=== PATIENT | male | born 1945 | race Caucasian/White ===

== ENCOUNTER → 2023-12-07 12:35 | Outpatient (REF) | payer OTHER, SELFPAY ==
[2023-12-07 15:51] LABS: % Basophils 1.4 % (0-2); % Eosinophils 0.6 % (0-6); % Immature Granulocytes 0.3 % (0-0.5); % Lymphocytes 17.6 % (20.5-51.1); % Monocytes 13.8 % (1.7-9.3); % Neutrophils 66.3 % (42.2-75.2); Absolute Basophils 0.1 10^3/uL (0-0.2); Absolute Lymphocytes 0.6 10^3/uL (1.2-3.4); Absolute Monocytes 0.5 10^3/uL (0.1-0.6); Absolute Neutrophils 2.3 10^3/uL (1.4-6.5); Hematocrit 40.6 % (39.0-52.0); Hemoglobin 13.8 g/dL (13.0-18.0); Mean Corpuscular Hgb 29.6 pg (27.0-31.0); Mean Corpuscular Volume 87.1 fL (80.0-94.0); Mean Platelet Volume 10.3 fL (7.4-10.4); Nucleated Red Blood Cells % 0 % (-); Platelet Count 174 10^3/uL (130-400); Red Blood Cell Count 4.66 10^6/uL (4.70-6.10); Red Cell Dist. Width 15.1 % (11.5-14.5); White Blood Cell Count 3.5 10^3/uL (4.8-10.8)
[2023-12-07 16:03] LABS: ALT (SGPT) 19 U/L (0-50); AST (SGOT) 41 U/L (17-59); Albumin 4.1 g/dl (3.5-5.0); Alkaline Phosphatase 76 U/L (38-126); Blood Urea Nitrogen 21 mg/dl (9-20); Calcium 9.1 mg/dl (8.4-10.2); Carbon Dioxide 32 mmol/L (22-30); Chloride 96 mmol/L (98-107); Glucose 97 mg/dl (70-99); Potassium 3.6 mmol/L (3.5-5.1); Sodium 138 mmol/L (135-145); Total Bilirubin 1.1 mg/dl (0.2-1.3); Total Protein 6.5 g/dl (6.3-8.2); eGFR > 60.00
== END ==
LOC: HWLAB 12:35
PROVIDERS: ATTENDING PHYSICIAN Internal Medicine Rheumatology; FAMILY PHYSICIAN Family Medicine
DX: M1A.09X1 Idiopathic chronic gout, multiple sites, with tophus (tophi) (principal); M81.0 Age-related osteoporosis without current pathological fracture; Z79.899 Other long term (current) drug therapy
CPT/HCPCS: 36415; 80053; 84550; 85025

== ENCOUNTER → 2024-03-08 06:10 | Outpatient (REF) | payer OTHER, SELFPAY ==
[2024-03-08 09:53] LABS: % Basophils 0.9 % (0-2); % Eosinophils 2.7 % (0-6); % Immature Granulocytes 0.3 % (0-0.5); % Neutrophils 54.1 % (42.2-75.2); Absolute Eosinophils 0.1 10^3/uL (0-0.7); Absolute Lymphocytes 0.9 10^3/uL (1.2-3.4); Absolute Monocytes 0.5 10^3/uL (0.1-0.6); Absolute Neutrophils 1.8 10^3/uL (1.4-6.5); Hematocrit 37.9 % (39.0-52.0); Hemoglobin 12.7 g/dL (13.0-18.0); Mean Corp Hgb Conc. 33.5 g/dL (33.0-37.0); Mean Corpuscular Hgb 30.1 pg (27.0-31.0); Mean Corpuscular Volume 89.8 fL (80.0-94.0); Mean Platelet Volume 10.8 fL (7.4-10.4); Nucleated Red Blood Cells % 0 % (-); Platelet Count 158 10^3/uL (130-400); Red Blood Cell Count 4.22 10^6/uL (4.70-6.10); Red Cell Dist. Width 14.9 % (11.5-14.5); White Blood Cell Count 3.3 10^3/uL (4.8-10.8)
[2024-03-08 10:05] LABS: ALT (SGPT) 13 U/L (0-50); AST (SGOT) 30 U/L (17-59); Albumin 4.1 g/dl (3.5-5.0); Alkaline Phosphatase 83 U/L (38-126); Blood Urea Nitrogen 18 mg/dl (9-20); Calcium 9.3 mg/dl (8.4-10.2); Carbon Dioxide 36 mmol/L (22-30); Chloride 96 mmol/L (98-107); Glucose 118 mg/dl (70-99); Potassium 3.8 mmol/L (3.5-5.1); Sodium 137 mmol/L (135-145); Total Bilirubin 0.9 mg/dl (0.2-1.3); Total Protein 6.1 g/dl (6.3-8.2); Uric Acid 4.8 mg/dl (3.5-8.5); eGFR > 60.00
[2024-03-08 10:51] LABS: Erythrocyte Sed Rate 40 mm/hour (0-20)
== END ==
LOC: HWLAB 06:10
PROVIDERS: ATTENDING PHYSICIAN Internal Medicine Rheumatology; FAMILY PHYSICIAN Family Medicine
DX: Z79.899 Other long term (current) drug therapy (principal); M1A.09X1 Idiopathic chronic gout, multiple sites, with tophus (tophi)
CPT/HCPCS: 36415; 80053; 84550; 85025; 85652; 86140

== ENCOUNTER → 2024-06-10 12:10 | Outpatient (REF) | payer OTHER, SELFPAY ==
[2024-06-10 16:02] LABS: Blood Urea Nitrogen 22 mg/dl (9-20); Calcium 9.5 mg/dl (8.4-10.2); Chloride 91 mmol/L (98-107); Glucose 135 mg/dl (70-99); Sodium 138 mmol/L (135-145); eGFR > 60.00
[2024-06-10 16:12] LABS: Carbon Dioxide 34 mmol/L (22-30)
== END ==
LOC: HWLAB 12:10
PROVIDERS: ATTENDING PHYSICIAN Thoracic Surgery (Cardiothoracic Vascular Surgery); FAMILY PHYSICIAN Family Medicine
DX: I71.21 Aneurysm of the ascending aorta, without rupture (principal)
CPT/HCPCS: 36415; 80048

== ENCOUNTER → 2024-12-21 10:07 | Outpatient (REF) | payer OTHER, SELFPAY ==
[2024-12-21 17:29] LABS: % Basophils 0.7 % (0-2); % Eosinophils 2.1 % (0-6); % Immature Granulocytes 0.2 % (0-0.5); % Lymphocytes 11.9 % (20.5-51.1); % Monocytes 10.3 % (1.7-9.3); % Neutrophils 74.8 % (42.2-75.2); Absolute Eosinophils 0.1 10^3/uL (0-0.7); Absolute Lymphocytes 0.5 10^3/uL (1.2-3.4); Absolute Monocytes 0.4 10^3/uL (0.1-0.6); Absolute Neutrophils 3.1 10^3/uL (1.4-6.5); Hematocrit 43.7 % (39.0-52.0); Hemoglobin 13.8 g/dL (13.0-18.0); Mean Corp Hgb Conc. 31.6 g/dL (33.0-37.0); Mean Corpuscular Hgb 29.2 pg (27.0-31.0); Mean Corpuscular Volume 92.4 fL (80.0-94.0); Mean Platelet Volume 11.3 fL (7.4-10.4); Nucleated Red Blood Cells % 0 % (-); Platelet Count 136 10^3/uL (130-400); Red Blood Cell Count 4.73 10^6/uL (4.70-6.10); Red Cell Dist. Width 14.9 % (11.5-14.5); White Blood Cell Count 4.2 10^3/uL (4.8-10.8)
[2024-12-21 17:39] LABS: Erythrocyte Sed Rate 117 mm/hour (0-20)
[2024-12-21 17:41] LABS: ALT (SGPT) 17 U/L (0-50); AST (SGOT) 30 U/L (17-59); Alkaline Phosphatase 84 U/L (38-126); Blood Urea Nitrogen 24 mg/dl (9-20); Carbon Dioxide 36 mmol/L (22-30); Chloride 104 mmol/L (98-107); Glucose 82 mg/dl (70-99); Potassium 4.1 mmol/L (3.5-5.1); Sodium 143 mmol/L (135-145); Total Bilirubin 0.9 mg/dl (0.2-1.3); Total Protein 6.5 g/dl (6.3-8.2); Uric Acid 3.4 mg/dl (3.5-8.5); eGFR > 60.00
== END ==
LOC: HWLAB 10:07
PROVIDERS: ATTENDING PHYSICIAN Internal Medicine Rheumatology; FAMILY PHYSICIAN Family Medicine
DX: L40.50 Arthropathic psoriasis, unspecified (principal); M1A.09X1 Idiopathic chronic gout, multiple sites, with tophus (tophi); M81.0 Age-related osteoporosis without current pathological fracture
CPT/HCPCS: 36415; 80053; 84550; 85025; 85652; 86140

== ENCOUNTER → 2025-03-03 06:13 | Outpatient (REF) | payer OTHER, SELFPAY ==
[2025-03-03 09:49] LABS: Hematocrit 45.2 % (39.0-52.0); Hemoglobin 14.2 g/dL (13.0-18.0); Mean Corp Hgb Conc. 31.4 g/dL (33.0-37.0); Mean Corpuscular Volume 93.0 fL (80.0-94.0); Nucleated Red Blood Cells % 0 % (-); Platelet Count 188 10^3/uL (130-400); Red Cell Dist. Width 15.6 % (11.5-14.5)
[2025-03-03 13:22] LABS: Blood Urea Nitrogen 21 mg/dl (9-20); Calcium 8.9 mg/dl (8.4-10.2); Carbon Dioxide 35 mmol/L (22-30); Chloride 97 mmol/L (98-107); Glucose 106 mg/dl (70-99); Potassium 4.0 mmol/L (3.5-5.1); Sodium 137 mmol/L (135-145); eGFR > 60.00
== END ==
LOC: HWLAB 06:13
PROVIDERS: ATTENDING PHYSICIAN Otolaryngology; FAMILY PHYSICIAN Family Medicine
DX: J38.1 Polyp of vocal cord and larynx (principal); I10 Essential (primary) hypertension
CPT/HCPCS: 36415; 80048; 85025

== ENCOUNTER 2025-06-08 07:17 | Inpatient (IN) | payer OTHER, SELFPAY ==
[2025-06-08] VITALS (9 sets, daily range): BP systolic 76–131; BP diastolic 72–84; BMI 25.3; BMI 24.7
[2025-06-08 02:50] LABS: Hematocrit 45.7 % (39.0-52.0); Hemoglobin 14.1 g/dL (13.0-18.0); Mean Corp Hgb Conc. 30.9 g/dL (33.0-37.0); Mean Corpuscular Volume 94.8 fL (80.0-94.0); Nucleated Red Blood Cells % 0 % (-); Platelet Count 121 10^3/uL (130-400); Red Cell Dist. Width 15.0 % (11.5-14.5)
[2025-06-08 03:09] LABS: ALT (SGPT) 19 U/L (0-50); AST (SGOT) 36 U/L (17-59); Albumin 4.0 g/dl (3.5-5.0); Alkaline Phosphatase 97 U/L (38-126); Blood Urea Nitrogen 28 mg/dl (9-20); Calcium 8.7 mg/dl (8.4-10.2); Chloride 97 mmol/L (98-107); Estimated Creatinine Clearance 40 ml/min; Glucose 94 mg/dl (70-99); Potassium 4.4 mmol/L (3.5-5.1); Sodium 139 mmol/L (135-145); Total Protein 6.7 g/dl (6.3-8.2); eGFR > 60.00
[2025-06-08 03:18] LABS: Carbon Dioxide 37 mmol/L (22-30)
[2025-06-08 04:43] LABS: Troponin I 0.078 ng/ml
[2025-06-08 04:49] LABS: B.E. 8.0 mmol/L; HCO3 35.5 mmol/L (21-28); O2 Saturation % 98.5 % (94-98); PCO2 60 mmHg (35-48); PO2 99 mmHg (83-108)
[2025-06-08 04:50] LABS: O2 Therapy 2 L NC
--- NOTE | 2025-06-08 05:18 | ED.GENMED ---
History of Present Illness
General
Chief Complaint: Cardiac Symptoms
Source: patient and spouse
Exam Limitations: clinical condition
Time Seen by Provider: 06/08/25 03:31
Nursing documentation reviewed up to this point in time: agreed with
History of Present Illness
History of Present Illness:
The patient is an 80-year-old male with a known history of heart failure, presenting with worsening dyspnea primarily at night and increased lower extremity edema. According to the patient�s spouse, he has been experiencing exacerbated shortness of
breath over the past few nights, coupled with increased fluid retention. The patient has noted his legs are more swollen than usual. He reported taking more doses of his diuretic medication, torsemide, to manage the swelling. His baseline weight is
around 129 pounds, but he has recently gained approximately 5 pounds, peaking at 137 pounds before managing to reduce it slightly with increased diuretic use.
The patient had a fall while seated in a recliner, resulting in contact with the floor, causing discomfort in his head and shoulder but no loss of consciousness. He used an ice pack on his neck for mild pain. The fall occurred due to being lethargic
and drowsy, conditions noted by his spouse. The patient denies chest pain and does not regularly use supplemental oxygen. He has a known aortic aneurysm, deemed inoperable by his heart surgeon due to surgical risk factors.
The patient reports better condition during daytime, regularly attending the gym and driving himself; however, he falls asleep easily and appears lethargic. He states improvement after about 5 minutes while lying down. He attended the gym the
previous day.
He follows with folder machine at [facility]. is thinking of transitioning to [facility] specialist.
His daily medications include allopurinol, enalapril�dose was lowered by PCP last week. Levothyroxine and torsemide. is unsure as to the doses of these medicines.
Past History
Past History
ED Past Medical History: Arrthythmia (Atrial fibrillation), CAD, CHF, HTN, Hypothyroidism and Other (Gout; thoracic aortic aneurysm)
ED Past Surgical History: Cardiac (CABG, abdominal aortic aneurysm repair, PTCA with stents) and Orthopedic (Left knee surgery 2022)
Social History
Tobacco: Non-smoker
Alcohol: None
Drug: None
Living: with family
Employment: Retired
Family History
Family History: Other (Noncontributory)
Phy Exam
Physical Exam
Physical Exam:
GENERAL: A 80-year-old gentleman appears his stated age, moderately lethargic, flexed forward posture, leaning to the right. Mild hypoxia on room air with pulse ox in the 80s, requiring supplemental nasal cannula oxygen.
EYE: anicteric
NECK: Supple, no midline bony tenderness, no meningismus, no significant adenopathy. Mild JVD.
ENT: oral mucosa is moist. No rhinorrhea.
CARDIAC: Regular rate and rhythm. no murmur.
LUNGS: Mild resting tachypnea. Decreased breath sounds at bases with fine rales bilaterally.
ABDOMEN: Soft, nondistended, without focal tenderness, no r/g, no cvat. normoactive BS.
NEUROLOGICAL: Awake, moderately drowsy, oriented x 3, no focal neuro deficits.
SKIN: Warm and dry, normal color, skin intact. No rash.
MUSCULOSKELETAL: +2-3 pitting edema bilateral lower extremities, peripheral pulses are full and equal b/l. No palpable tenderness.
PSYCH: Moderately drowsy.
Course
Orders/Labs/Results
Orders:
Orders
06/08/25 01:48
EKG [Electrocardiogram (*1)] Urgent
Reason for Study: Heart Failure, Left
EKG- Treatment ONCE
06/08/25 02:43
Complete Blood Count/With Diff Urgent
Comprehensive Metabolic Panel Urgent
NT-proBNP Urgent
06/08/25 03:42
CT Cervical Spine W/o Iv Contr Urgent
Comment:
Reason For Exam: fall out of chair, neck pain
06/08/25 03:43
CT Head W/o Iv Contrast Urgent
Comment:
Reason For Exam: fall out of chair, lethargy
06/08/25 03:47
CT Chest PE Study Urgent
Comment:
Reason For Exam: SOB, CP
06/08/25 03:48
Cervical Collar- Treatment ONCE
Collar Type: Hard Cervical Collar
06/08/25 04:00
Troponin I Urgent
06/08/25 04:26
ABG [Arterial Blood Gas] Urgent
%Oxygen/Room Air: 2 L NC
06/08/25 05:24
Furosemide [Lasix] 60 mg IV NOW STA
Abnormal Lab Results
06/08/25 06/08/25 06/08/25
02:43 04:00 04:26
WBC 4.3 L 10^3/uL
(4.8-10.8)
MCV 94.8 H fL
(80.0-94.0)
MCHC 30.9 L g/dL
(33.0-37.0)
RDW 15.0 H %
(11.5-14.5)
Plt Count 121 L 10^3/uL
(130-400)
MPV 10.7 H fL
(7.4-10.4)
Absolute Lymphs (auto) 0.5 L 10^3/uL
(1.2-3.4)
Lymphocytes % 11.5 L %
(20.5-51.1)
Monocytes % 13.4 H %
(1.7-9.3)
pCO2 60 H mmHg
(35-48)
HCO3 35.5 H mmol/L
(21-28)
ABG O2 Sat (Measured) 98.5 H %
(94-98)
Chloride 97 L mmol/L
(98-107)
Carbon Dioxide 37 H mmol/L
(22-30)
BUN 28 H mg/dl
(9-20)
Troponin I 0.078 H* ng/ml
06/08/25 02:43
06/08/25 02:43
Vital Signs
Initial and Last Documented VS:
Initial Vital Signs
Temp Pulse BP Pulse Ox
98.1 F 97 130/81 93
06/08/25 01:55 06/08/25 01:55 06/08/25 01:55 06/08/25 01:55
Last Documented Vital Signs
Temp Pulse Resp BP Pulse Ox
98.1 F 88 18 130/81 96
06/08/25 01:55 06/08/25 04:30 06/08/25 04:15 06/08/25 01:55 06/08/25 05:19
MDM/Problems Addressed
Differential Diagnosis Includes:
The Differential Diagnosis includes, in no particular order and is not limited to:
- Acute Decompensated Heart Failure
- Pulmonary Edema
- Aortic Dissection
- Atrial Fibrillation or other arrhythmias
- Volume Overload
- Electrolyte Imbalance
- Orthostatic Hypotension
- Syncope
- Sleep Apnea
- Anxiety-related Hyperventilation
MDM/Problems Addressed:
Acute:
- Shortness of breath exacerbation
- Increased lower extremity edema
- Recent fall with minor head and neck injury
Chronic:
- Heart failure
- Large ascending thoracic aortic aneurysm
Patient is acutely hypoxic, moderately drowsy/obtunded. Concern for occult head injury as he fell out of his chair. Other consideration is hypercarbia.
Will check CT of the head, CT cervical spine as well as CT of the chest/PE study.
Will check labs as well as ABG.
Will continue supplemental oxygen.
EKG shows probable atrial fibrillation, right bundle branch block, Q waves inferiorly as well as anteroseptal. No old EKGs to compare.
Chronic conditions affecting care: HTN, CAD and Arrhythmia
*Radiology
Radiology exam reviewed: radiology read reviewed (CT of the head and cervical spine show no acute traumatic findings. CT of the chest shows no PE, moderate cardiomegaly, small left and moderate right pleural effusion. Chronic compression
deformities of thoracic spine.)
*Pulse Oximetry
SaO2: 96
Nasal Cannula flow liters per minute: 2
Oxygen Mode of Delivery: Room air
Patient hypoxic: yes
*EKG
Interpreted by ED Provider?: Yes
Interpretation: abnormal
Comparison EKG: no comparison EKG present
Rate: normal
Rhythm: a-fib
[place]: left axis deviation
QRS Pattern: right bundle branch block
Ischemia: non-specific ST changes
*Experimental Machinist Interpretation
Rate: normal
Rhythm: a-fib
*Critical Care Note
Total Time (30-74mins, 75-104mins- exclusive of procedures): Not Applicable
Update Note
Update Note:
BNP is elevated near 10,000
Troponin mildly elevated 0.078.
ABG shows respiratory acidosis with metabolic alkalosis, appears chronic in nature with normal pH.
CT of the chest shows bilateral pleural effusions, cardiomegaly.
Will give an IV dose of Lasix and admit to hospitalist service.
ED Attending Note
-
Portions of this chart may have been created with voice recognition software.� Occasional wrong word or��sound alike� substitutions may have occurred due to the inherent limitations of voice recognition software.
Discharge Plan
Departure
Patient Disposition: Admit
Date of Disposition: 06/08/25
Time of Disposition: 05:38
Admit to: Telemetry
Admit to doctor: John
Presentation/result/management discussed w/ accepting MD/DO: Hospitalist
Condition: Serious
Discharge Problem:
Acute on chronic combined systolic (congestive) and diastolic (congestive) heart failure, Acute hypoxemic respiratory failure, Elevated troponin
Referrals:
Luber,Sean, DO [Family Provider, Family Practice]
Interventions
Interventions:
*Risk Screen - Suicide Last Done: 06/08/25 02:10
*General Assessment Last Done: 06/08/25 02:10
*Neglect/Abuse Screening Last Done: 06/08/25 02:10
*ED- Fall Risk Assessment Last Done: 06/08/25 02:10
*ED COVID-19 Vaccine History Last Done: 06/08/25 02:10
*ED Influenza Vaccine History Last Done: 06/08/25 02:10
ED- Pulmonary Assessment Last Done: 06/08/25 02:10
ED- Cardiac Assessment Last Done: 06/08/25 02:10
Discharge Date and Time
Print Language: GERMAN
[2025-06-08] MEDS: LASIX 60 MG IV (05:57)
--- NOTE | 2025-06-08 06:28 | HPS.HSE ---
Family Physician
-
Family Physician: Sean Martino
Chief Complaint
-
Shortness of breath
History of Present Illness
This is a 80-year-old male with a past medical history of CAD status post CABG x 5, ischemic cardiomyopathy, CHF on diuretics, atrial fibrillation not on anticoagulation and no rate control, thoracic aortic aneurysm, gout, hypothyroid KANA on CPAP
but noncompliant presents to the emergency department with progressive shortness of breath.
Per family members patient has been having more shortness of breath over the last few days although is chronically short of breath not on home O2. He usually can walk up a flight of stairs and gets winded but is now less able to do so for the last
few days. He still goes to the gym and tries to walk water regularly. And he still did that yesterday. He has been sleeping in a recliner because he cannot lay down due to shortness of breath. Has had increased lower extremity edema. They
reported 5 pound weight gain over the last 2 days. Patient self medicated with additional doses of his torsemide (family does not know the dose) without much improvement. He has not had any chest pain. He denies any cough fevers or chills. His
blood pressure was low about 1 week ago and is JANNETH inhibitor was discontinued. His blood pressure has been normalized since then.
Today he was tripoding while sitting down on his recliner leaning forward when he tipped over and fell. helped him to get back to a sitting position but patient was more lethargic afterwards and decided to bring him to the emergency
department. There was no loss of consciousness according to spouse. There was no palpitation.
In the emergency department he was afebrile, blood pressure was 130/76 with a pulse rate of 84 and he was satting 92% on 2 L. ECG shows atrial fibrillation with right bundle at a rate of 84. His troponin was 0.07. BNP was 9900. CBC was
unremarked. Electrolytes. Creatinine was notable for a bicarb of 37 but otherwise unremarkable. glucose was 94.
CT of the head shows no acute interval changes. CT C-spine was unremarkable. CT of the chest showed no pulmonary embolism, there was cardiomegaly with reflux of contrast into the IVC which could reflect heart failure, there is small left and
moderate right pleural effusion with compressive atelectasis
Medical History
Past Medical History
Past Medical History: Reports Arrhythmia (Atrial fibrillation), CAD (Is status post CABG), CHF, HTN and Other (Gout, thoracic aortic aneurysm, KANA and noncompliant with CPAP)
Past Surgical History: Reports Cardiac (CABG, abdominal aortic aneurysm repair, PTCA with stents) and Orthopedic (Left knee surgery)
Social History
Tobacco: Former Smoker
Alcohol: None
Drug: None
Personal:
Living: With Family
Employment: Retired
Family History
Family History: Not pertinent
Allergies / Home Medications
Allergies reflects when Allergies were last updated in [employer].
Home Medications with original date entered in [employer]
Allergy/Medication List:
Allergies
Allergy/AdvReac Type Severity Reaction Status Date / Time
No Known Allergies Allergy Unverified 03/23/13 19:54
Home Medications
allopurinol 300 mg tablet 450 mg PO DAILY 06/08/25
alprazolam 0.25 mg tablet 0.25 mg PO DAILY PRN anxiety 06/08/25
levothyroxine 50 mcg tablet 50 mcg PO DAILY 06/08/25
torsemide 20 mg tablet 20 mg PO BID 06/08/25
Review of Systems
-
History Source: Family
Constitutional: Reports No Symptoms and Sleep Disturbance
EENT: Reports No Symptoms
Respiratory: Reports Trouble Breathing
Cardiac: Denies Chest Pain, Diaphoresis, Palpitations or Syncope
Abdomen/GI: Reports No Symptoms
: Reports No Symptoms
Musculoskeletal: Reports No Symptoms
Skin: Reports No Symptoms
Neurological: Reports No Symptoms
Endocrine: Reports No Symptoms
Hematologic/Lymphatic: Reports No Symptoms
Psych: Reports No Symptoms
Physical Exam
Vital Signs
Vital Signs
Temp Pulse Resp BP Pulse Ox
98.1 F 84 15 131/76 99
06/08/25 01:55 06/08/25 06:00 06/08/25 06:00 06/08/25 05:57 06/08/25 06:00
Physical Exam
General: Appears Chronically Ill
HEENT: NormoCephalic, Anicteric, Moist mucous membranes, PERRLA, Hearing Impaired and Oxygen
Respiratory: Crackles
Cardiac: S1/S2, Irregular Rhythm and Peripheral Edema; No Murmur or Rub
GI: Soft
Rectal: Deferred by Provider
Genito-urinary: Deferred by me
Musculoskeletal: No Clubbing, No Cyanosis, Edema, Left Lower Extremity and Edema, Right Lower Extremity
Skin: Warm
Neuro: AO x 3 and Nonfocal/grossly intact
Laboratory Results
-
06/08/25 02:43
06/08/25 02:43
Laboratory Results
pH 7.38 (7.35-7.45) 06/08/25 04:26
pCO2 60 mmHg (35-48) H 06/08/25 04:26
pO2 99 mmHg (83-108) 06/08/25 04:26
HCO3 35.5 mmol/L (21-28) H 06/08/25 04:26
Total Bilirubin 1.0 mg/dl (0.2-1.3) 06/08/25 02:43
AST 36 U/L (17-59) 06/08/25 02:43
ALT 19 U/L (0-50) 06/08/25 02:43
Alkaline Phosphatase 97 U/L (38-126) 06/08/25 02:43
Troponin I 0.078 ng/ml H* 06/08/25 04:00
Data Reviewed
-
CT Scan: Report Reviewed by me
Medical Tests (Nuc Med, Echo, EKG etc): Image Personally Visualized and interpreted
Lab Data: Labs Reviewed by me
Impression/Plan
-
IMPRESSION:
80-year-old male with past medical history significant for CHF, CAD status post CABG in the remote past, atrial fibrillation not currently anticoagulated, hypothyroid, KANA not on CPAP, history of repeated AAA, history of thoracic aortic aneurysm
presenting to the emergency department with progressive shortness of breath. Clearly has congestive heart failure based on 5 pound weight gain in 2 days, peripheral edema elevated JVD, bilateral pleural effusions, elevated BNP and CT scan showing
signs consistent with heart failure. No fevers or chills. No cough. No other signs of infection.
PLAN:
CHF exacerbation -patient reports compliance with torsemide 20 mg p.o. twice daily and took extra doses recently. Still had weight gain
-Admit to telemetry
-IV Lasix 80 mg twice daily for now
-Daily weights and ins and outs
-Echo
-Trend troponins
-Patient intolerant of GDMT due to recent hypotensive episode, will monitor blood pressure for now and timing appropriate additional meds
�Cardiology consultation
Atrial fibrillation -rate controlled off beta-blockade
-Patient has declined anticoagulation and will not be on any
-Monitor rates on telemetry for now, hold off on rate control unless patient becomes tachycardic
-Check TSH
Aortic AAA -high risk, not a candidate for surgery, will monitor for now, BP control
KANA -noncompliant with CPAP
-Recommend CPAP at bedtime as tolerated
-Will need to be on oxygen for now
-Current ABG with compensated chronic respiratory acidosis pCO2 60
DVT prophylaxis�Lovenox subcu for now
CODE STATUS� DNR, DO NOT INTUBATE
--- NOTE | 2025-06-08 08:09 | W.PN.HOSP.TC ---
Today's Communication/Plan
-
see PN
Assessment / Plan
Assessment / Plan
80yo M with PMHx of Afib not on AC by choice, anxiety, gout, CAD s/p CABG, ischemic CM, CHF came with 2 weeks of worsening breathing and lethargy, found LE edema and hypoxia with pulmonary edema on chest CT, managed for CHF exacerbation. patient
fell on the floor and was unable to raise as per bedside. Was very easyly falling asleep for te past 2 weeks
A/P:
#b/l pleural effusions R>L
#Atelectasis
#Acute CHF exacerbation
#Afib, permanent
#Troponin elevation
#Ascending aortic aneurism
Lasix, Echo, daily weights, Cr and electrolytes
Cardio consult
Not on ASA, statin, BB - will need to be started if agereed by patient
Defer AC decision to cardiology. [id number] at least 5 - 7.2% per year stroke risk
CHeck TSH, Lipids, HgbA1c
DIagnostic R pleural effusion thoracentesis - check PT, PTT, LDH ahead of procedure
follow troponin, EKG with RBBB, Afib, but no clinically significant ST elevations. Biphasic TW in lateral leads seen
Telemetry
#Acute hypoxic rrespiratory failure with acute metabolic encephalopathy
Check UA
ABG
Wean off O2 as possible
As CT chest cannot exclude infection - follow fever and WBC curve. However no left shift. Will hold off Abx until further findings
#Fall
no acute findings on CT head and cervical CT
#Thrombocytopenia
#Chronic leukopenia
unclear reason
follow labs
Might need hem consult if persistent
#Gout
#Hypothyroidism
cont Synthroid
cont Allopurinol
#Hx of esophageal stricture with dysphagia
s/p VTE in November 2024: hin liquids and regular texture solids
VT ppx lovenox
DNR/DNI
I have spent at least 59min reviewing chart, test results, communication with consultants, bedside and providing direct patient care
Anticipated Discharge: > 48 hours
Subjective/Interval History
-
Date of Service: June 08, 2025
Objective Data
-
Labs:
Laboratory Results
06/08/25 06/08/25 06/08/25
02:43 04:26 07:53
WBC 4.3 L
Hgb 14.1
Hct 45.7
Plt Count 121 L
PT
INR
APTT
HCO3 35.5 H Pending
Sodium 139
Potassium 4.4
Chloride 97 L
Carbon Dioxide 37 H
BUN 28 H
Creatinine 1.1
Glucose 94
Calcium 8.7
Total Bilirubin 1.0
AST 36
ALT 19
Alkaline Phosphatase 97
06/08/25
08:08
WBC
Hgb
Hct
Plt Count
PT Pending
INR Pending
APTT Pending
HCO3
Sodium
Potassium
Chloride
Carbon Dioxide
BUN
Creatinine
Glucose
Calcium
Total Bilirubin
AST
ALT
Alkaline Phosphatase
Vital Signs:
Vital Signs
Temp Pulse Resp BP Pulse Ox
98.1 F 97 27 131/76 90
06/08/25 01:55 06/08/25 06:45 06/08/25 06:45 06/08/25 05:57 06/08/25 06:45
Review of Systems
-
History Source: Patient
All other systems: Reviewed and negative
Physical Exam
-
General: No Apparent Distress
HEENT: Normocephalic and Atraumatic; Negative Moist Mucous Membranes
Respiratory: Negative Wheezes or Crackles
Cardiac: Irregular Rhythm
GI: Soft, Nontender and Nondistended
Musculoskeletal: No Clubbing, No Cyanosis and No Edema
Skin: Dry
Neuro: Sedated
Psych: Calm
--- NOTE | 2025-06-08 08:22 | CM ---
Chart reviewed and spoke with patient and Harper at ED bedside
Pt lives in [facility] with of 52 years. 3 [place]
Independent with ADLs and uses cane for outside as needed
hx of sleep apnea and has CPAP but has not used for a long time
CM discussed with and patient about reaching out to PCP and/or sleep medicine for follow up
Patient has 3 kids from previous marriange
[facility] in [place] was here in ED to check on him
DME Cane, CPAP
PCP DR. Sean Martino
[facility] Super[facility] ; pt and are in process of getting a new patient ambassador here at . his old patient ambassador retired and he did NOT like the new one at the same practice
hx of CABG 40 years ago
Rx plan yes
[facility] in [place]
no hx VN nor SNF
DCP home with hhc vs STR?
can provide transportation at the time of DC if needed
CM will continue to follow up for any dcp needs
[2025-06-08 08:33] LABS: B.E. 9.8 mmol/L; HCO3 37.5 mmol/L (21-28); O2 Saturation % 93.0 % (94-98); PCO2 62 mmHg (35-48); PO2 64 mmHg (83-108)
[2025-06-08 08:50] LABS: LDH 276 U/L (120-246)
[2025-06-08 10:56] LABS: LDH 282 U/L (120-246)
[2025-06-08 11:01] LABS: INR 1.18; PT 15.6 Sec (11.4-14.6)
[2025-06-08 11:02] LABS: APTT 33.7 Sec (23.4-35.0)
[2025-06-08 11:04] LABS: Body Fluid Second Tech US
[2025-06-08 11:53] LABS: Troponin I 0.075 ng/ml
--- NOTE | 2025-06-08 12:43 | CON.CAR ---
Addendum entered and electronically signed by Alex Damian DO 06/08/25 15:22:
I saw and examined the patient.
The Mold Carpenter's note was reviewed and I agree with the note.
Comment:
Plan:
Admitted with HF, and fall.
Records from Dr. Lester of [facility]: Patient has history of CABG x 5 in 1993 with most recent cardiac catheterization 2020 showing patent DUNN to LAD and UMER to diagonal, however occluded vein grafts as well as his [place] circulation. He has
permanent atrial fibrillation and refused anticoagulation as well as antiplatelet therapy or lipid-lowering therapy. His last echocardiogram from 2022 showed EF preserved with mild concentric LVH, mild AR/MR/TR, aortic root 4.1 cm and ascending
aorta 4.7 cm. He has a history of an abdominal aortic aneurysm stent in 2005
Continue IV diuresis. He was on torsemide as outpt.
Check echo
Monitor Is and Os and daily wts and cr.
s/p R thoracentesis 06/08
He has permanent AFib and refuses anticoagulation
GDMT as bp will allow
Head CT negative, further work up of mental status as per primary service.
Addendum entered and electronically signed by Crystal Harris PA-C 06/08/25 14:21:
records received and reviewed from Dr. Lester of [facility]. Patient has history of CABG x 5 in 1993 with most recent cardiac catheterization 2020 showing patent DUNN to LAD and UMER to diagonal, however occluded vein grafts as well as his [place]
circulation. He has permanent atrial fibrillation and refused anticoagulation as well as antiplatelet therapy or lipid-lowering therapy. His last echocardiogram from 2022 showed EF preserved with mild concentric LVH, mild AR/MR/TR, aortic root 4.1
cm and ascending aorta 4.7 cm. He has a history of an abdominal aortic aneurysm stent in 2005
Original Note:
Consultation
Consultation Request
Date/Time Consultation Performed: 06/08/25
Requesting Provider: Dr. Coleman
Performing Provider: Crystal Harris PA-C for Dr. Gejer
Reason for Consultation: CHF
Medical History
-
Chief Complaint: fall, lethargy, SOB
History of Present Illness:
Patient is an 80 yo M with PMH of CAD s/p CABG x5, ICM, atrial fibrillation not on OAC as patient states he is on natural blood thinner, CHF, thoracic aortic aneurysm, gout, KANA noncompliant with CPAP who presented to [facility] due to worsening SOB.
Family had noted over the last week or so that patient's breathing had been worsening as well as had noted associated weight gain and orthopnea. Then yesterday patient was sitting on recliner reportedly tripoding and leaned forward and fell. He
reportedly was lethargic and was brought in. He is lethargic but is able to tell me he follows with [facility] cardiology. He denies CP. proBNP 9910. Cardiology consulted for evaluation.
PMH:
CAD s/p CABG x5
ICM
CHF, presumed with reduced EF
Atrial fibrillation, unknown chronicity
Not on OAC, patient reports due to prior bleeding issues and as is on natural blood thinner
thoracic aortic aneurysm
gout
KANA
Hypothyroidism
Former smoker
Past Medical History
Past Medical History: Other (in HPI)
Social History
Tobacco: Former Smoker
Alcohol: None
Personal:
Living: With Family
Employment: Retired
Family History
Family History: Reviewed & Not Pertinent
Allergies / Home Medications
Allergy/AdvReac Type Severity Reaction Status Date / Time
No Known Allergies Allergy Unverified 03/23/13 19:54
�Medication �Instructions �Recorded �Confirmed �Type
allopurinol 300 mg tablet 450 mg PO DAILY Gout 06/08/25 06/08/25 History
alprazolam 0.25 mg tablet 0.25 mg PO DAILYPRN PRN anxiety 06/08/25 06/08/25 History
ascorbic acid (vitamin C) 500 mg 500 mg PO DAILY Supplement 06/08/25 06/08/25 History
tablet (Vitamin C)
cholecalciferol (vitamin D3) 25 25 mcg PO DAILY Supplement 06/08/25 06/08/25 History
mcg (1,000 unit) capsule (Vitamin
D3)
docusate sodium 100 mg capsule 100 mg PO BIDPRN PRN constipation 06/08/25 06/08/25 History
(Colace)
enalapril maleate 10 mg tablet 10 mg PO DAILY Blood Pressure 06/08/25 06/08/25 History
levothyroxine 50 mcg tablet 50 mcg PO DAILY Thyroid 06/08/25 06/08/25 History
torsemide 20 mg tablet 20 mg PO BID 06/08/25 06/08/25 History
vitamin B complex 1 tab PO DAILY Supplement 06/08/25 06/08/25 History
Review of Systems
-
History Source: Patient
All other systems: Negative unless noted
Physical Exam
Vital Signs
Temp Pulse Resp BP Pulse Ox
97.8 F 92 17 128/80 100
06/08/25 11:48 06/08/25 11:48 06/08/25 11:48 06/08/25 11:48 06/08/25 11:48
Lab Results
06/08/25 02:43
06/08/25 02:43
Troponin I 0.075 ng/ml H* 06/08/25 10:52
Hae-W-Liwrlmzdhcb Pept 9910 pg/ml 06/08/25 02:43
Physical Exam
General: Comfortable and Other (lethargic but awakens to verbal stimuli. on supp O2)
HEENT: Normocephalic, Anicteric and Moist Mucous Membranes
Respiratory: Crackles and Non Labored Respirations
Cardiac: S1/S2 and Irregular Rhythm
GI: Soft, Non Tender, Non Distended and Normal Bowel Sounds
Musculoskeletal: No Clubbing, No Cyanosis and Edema (1+ of B/L LE)
Skin: Warm and Dry
Neuro: Awake and Oriented (to self, place)
Impression / Plan
-
Primary Photogrammetric Compilation Specialist: AMS
Assessment:
Presentation with fall, lethargy, SOB
Acute hypoxic respiratory failure
B/L pleural effusions, R>L s/p R thora 06/08/25, transudative
Acute on chronic CHF, presumed with reduced EF
CAD s/p CABG x5
ICM
Atrial fibrillation, unknown chronicity, suspected permanent
Not on OAC, patient reports due to prior bleeding issues and as is on natural blood thinner
thoracic aortic aneurysm
HTN
HLD
gout
KANA
Hypothyroidism
Former smoker
DNR code status
ECHO 06/08/25: prelim EF 30-35%
Plan:
-Patient presented after fall and lethargy in setting of progressive VALENTINE/SOB over the last week
-noted to have evidence of acute CHF with proBNP [address] with B/L pleural effusions R>L
-s/p R thoracentesis 06/08, which appears transudative by my calculation of light's criteria
-continue IV lasix 80mg BID. Cr stable at 1.1. was on po torsemide 20mg BID prior to admission
-wean supp O2 as able, reports did not require at home
-also with elevated CO2, follow with diuresis. may have degree of chronic lung disease as well
-awaiting records for review from primary utility mechanic
-trops elevated but flat in 0.07 range. no CP.
-EKG rate controlled afib with right bundle and PVCs at times in pattern of bigeminy. follow on tele. K stable. add on mag
-he states is not on anticoagulation due to prior bleeding issues. states he is on a 'natural blood thinner' as OP, does not appear to be on med list. [id number] score of 5 for age, HTN, CHF, vascular disease
-echo pending, prelim EF 30-35%. has history of ICM
-not on BB as OP. is on enalapril. would attempt to place on GDMT as BP/Cr allows
-follow mental status. remains lethargic but answers questions appropriately. head CT without acute abnormality noted
Data Reviewed
-
EKG: Tracing Personally Visualized and interpreted
CT Scan: Report Reviewed by me
Medical Tests (Nuc Med, Echo etc): Report Reviewed by me
Labs: Labs Reviewed by me
Old Records: Requested and Reviewed
[2025-06-08] MEDS: ZYLOPRIM 450 MG PO (12:55)
[2025-06-08] MEDS: SYNTHROID 50 MCG PO (12:56)
[2025-06-08 14:22] LABS: Magnesium 2.4 mg/dl (1.6-2.3)
[2025-06-08 15:04] LABS: Urine Character Clear (Clear)
[2025-06-08 15:28] LABS: Urine Red Blood Cell 0-2 /HPF (0-2); Urine Squamous Cell 0-2 /LPF (Few); Urine White Cell 0-2 /HPF (0-5)
[2025-06-08] MEDS: LASIX 80 MG IV (17:23)
[2025-06-08] MEDS: LOVENOX 40 MG SC (17:24)
[2025-06-08 19:28] LABS: COVID-19 Antigen Negative (Negative)
[2025-06-09] MEDS: SYNTHROID 50 MCG PO (05:44)
[2025-06-09 05:53] LABS: Hematocrit 45.5 % (39.0-52.0); Hemoglobin 13.9 g/dL (13.0-18.0); Mean Corp Hgb Conc. 30.5 g/dL (33.0-37.0); Mean Corpuscular Volume 96.0 fL (80.0-94.0); Nucleated Red Blood Cells % 0 % (-); Platelet Count 114 10^3/uL (130-400); Red Cell Dist. Width 15.0 % (11.5-14.5)
[2025-06-09 06:13] VITALS: BMI 24.5
[2025-06-09 06:22] LABS: ALT (SGPT) 17 U/L (0-50); AST (SGOT) 29 U/L (17-59); Albumin 3.7 g/dl (3.5-5.0); Alkaline Phosphatase 88 U/L (38-126); Blood Urea Nitrogen 21 mg/dl (9-20); Calcium 8.1 mg/dl (8.4-10.2); Chloride 96 mmol/L (98-107); Estimated Creatinine Clearance 42 ml/min; Glucose 110 mg/dl (70-99); Magnesium 2.3 mg/dl (1.6-2.3); Potassium 3.5 mmol/L (3.5-5.1); Sodium 138 mmol/L (135-145); Total Protein 6.4 g/dl (6.3-8.2); eGFR > 60.00
[2025-06-09 07:02] LABS: Carbon Dioxide 42 mmol/L (22-30)
[2025-06-09 07:33] VITALS: BP 121/69
[2025-06-09 07:38] LABS: Reticulocyte Count 1.6 % (0.4-2.8)
[2025-06-09 07:52] LABS: LDH 254 U/L (120-246)
[2025-06-09] MEDS: LASIX 80 MG IV ×2 (09:25→18:27)
[2025-06-09] MEDS: ZYLOPRIM 450 MG PO (09:25)
[2025-06-09 09:29] LABS: Glycohemoglobin (HgbA1c) 6.0 % (4.0-5.9)
--- NOTE | 2025-06-09 10:19 | W.PN.CARDCBS ---
Addendum entered and electronically signed by Loree Smith DO 06/09/25 17:23:
I saw and examined the patient.
The Worm Sorter's note was reviewed and I agree with the note.
Comment: Patient was seen and examined. Family at bedside. Offers no new complaints. Family is considering transferring care to [facility].
Plan:
Patient presented 06/08/2025 after fall and lethargy in setting of progressive VALENTINE/SOB over the last week
He is followed by Dr. Robbin Lester at [facility] for his cardiology care. Records received and reviewed which are reflected in this progress note.
Pleural effusions
-chest CT with B/L pleural effusions R>L
-s/p R thoracentesis 06/08, transudative
Acute CHF with reduced ejection fraction with proBNP 9910
-Echo shows EF of 30 to 35% with global hypokinesis. Patient has history of ischemic cardiomyopathy but EF was preserved in 2022
- Ongoing diuresis with IV lasix 80mg BID. Cr stable at 1.0. {was on po torsemide 20mg BID prior to admission}
-Replete potassium, K+ 3.5
- Initially required oxygen on admission, now has been weaned off
-also with elevated CO2, follow with diuresis. may have degree of chronic lung disease as well
-not on BB as OP. is on enalapril.
-would attempt to place on GDMT as BP/Cr allows. Start enalapril 2.5 mg in a.m. and Toprol 12.5 mg at bedtime
Abnormal troponin
-Peaked at 0.078.denies chest pain. EKG without ischemia. Suspect nonischemic myocardial injury secondary to heart failure
- Patient does have history of CABG x 5 in 1993. Per review of outpatient records last cardiac catheterization in 2020 showed occluded grafts as well as lower [place] circulation
-Will continue to attempt guideline directed therapy. Patient has been reluctant to take medication in past.
- Patient reports intolerance to statins as well as rash on prior statins. He is not interested in initiating therapy
History of permanent atrial fibrillation
-EKG rate controlled afib with right bundle and PVCs at times in pattern of bigeminy. follow on tele.
-Replete potassium
- Patient has declined anticoagulation due to prior bleeding issues. states he is on a 'Nattokinase and Serrapeptase which are natural blood thinners' as OP. He is not interested in starting anticoagulation
- [id number] score of 5 for age, HTN, CHF, vascular disease
Original Note:
Today's Communication / Plan
-
Replete potassium
Ongoing IV diuresis
Start enalapril 2.5 mg daily, Toprol 12.5 mg at bedtime
Impression / Plan
-
Primary Canal Equipment Mechanic: Dr. Lester, [facility]
Assessment:
Presentation 06/08/2025 with fall, lethargy, SOB
Acute hypoxic respiratory failure
B/L pleural effusions, R>L
s/p R thora 06/08/25, transudative
Acute on chronic CHF with reduced EF, 30-35%
CAD s/p CABG x5 1993
ICM
Permanent Atrial fibrillation, declines anticoagulation
Not on OAC, patient reports due to prior bleeding issues and as is on natural blood thinner
thoracic aortic aneurysm
Abdominal aortic aneurysm stent 2005
HTN
HLD
gout
KANA
Hypothyroidism
Former smoker
DNR code status
ECHO 06/08/25: EF 30 to 35%, global hypokinesis with flattened septum in systole due to RV volume overload. Moderate MR. Mild AI with mildly dilated ascending ao. Severe TR with PAP 38 mmHg
Echocardiogram 2022([facility]): EF preserved with mild concentric LVH, mild AR/MR/TR, aortic root 4.1 cm and ascending aorta 4.7 cm
Cardiac catheterization 2020 showing patent DUNN to LAD and UMER to diagonal, however occluded vein grafts as well as his lower [place] circulation
Plan:
Patient presented 06/08/2025 after fall and lethargy in setting of progressive VALENTINE/SOB over the last week
He is followed by Dr. Robbin Lester at [facility] for his cardiology care. Records received and reviewed which are reflected in this progress note.
Pleural effusions
-chest CT with B/L pleural effusions R>L
-s/p R thoracentesis 06/08, transudative
Acute CHF with reduced ejection fraction with proBNP 9910
-Echo shows EF of 30 to 35% with global hypokinesis. Patient has history of ischemic cardiomyopathy but EF was preserved in 2022
- Ongoing diuresis with IV lasix 80mg BID. Cr stable at 1.0. {was on po torsemide 20mg BID prior to admission}
-Replete potassium, K+ 3.5
- Initially required oxygen on admission, now has been weaned off
-also with elevated CO2, follow with diuresis. may have degree of chronic lung disease as well
-not on BB as OP. is on enalapril.
-would attempt to place on GDMT as BP/Cr allows. Start enalapril 2.5 mg in a.m. and Toprol 12.5 mg at bedtime
Abnormal troponin
-Peaked at 0.078.denies chest pain. EKG without ischemia. Suspect nonischemic myocardial injury secondary to heart failure
- Patient does have history of CABG x 5 in 1993. Per review of outpatient records last cardiac catheterization in 2020 showed occluded grafts as well as lower [place] circulation
-Will continue to attempt guideline directed therapy. Patient has been reluctant to take medication in past.
- Patient reports intolerance to statins as well as rash on prior statins. He is not interested in initiating therapy
History of permanent atrial fibrillation
-EKG rate controlled afib with right bundle and PVCs at times in pattern of bigeminy. follow on tele.
-Replete potassium
- Patient has declined anticoagulation due to prior bleeding issues. states he is on a 'Nattokinase and Serrapeptase which are natural blood thinners' as OP. He is not interested in starting anticoagulation
- [id number] score of 5 for age, HTN, CHF, vascular disease
Patient considering transitioning cardiology care to [facility] as his prior informatics consultant Dr. Hong recently retired and he is only seen Dr. Lester wants
Plan discussed with hospitalist
Progress Note - Canal Equipment Mechanic
Subjective
Date of Service: June 09, 2025
Patient seen and examined. Patient's is at bedside. Feels less short of breath but still feels tired. Now off oxygen
Objective
Labs:
06/09/25 05:17
06/09/25 05:17
Labs
Hgb 13.9 g/dL (13.0-18.0) 06/09/25 05:17
Hct 45.5 % (39.0-52.0) 06/09/25 05:17
Plt Count 114 10^3/uL (130-400) L 06/09/25 05:17
PT 15.6 Sec (11.4-14.6) H 06/08/25 10:17
INR 1.18 06/08/25 10:17
APTT 33.7 Sec (23.4-35.0) 06/08/25 10:17
Sodium 138 mmol/L (135-145) 06/09/25 05:17
Potassium 3.5 mmol/L (3.5-5.1) 06/09/25 05:17
BUN 21 mg/dl (9-20) H 06/09/25 05:17
Creatinine 1.0 mg/dL (0.7-1.3) 06/09/25 05:17
Glucose 110 mg/dl (70-99) H 06/09/25 05:17
Troponins
06/08/25 06/08/25 06/08/25
04:00 10:52 16:31
Troponin I 0.078 H* 0.075 H* Cancelled
Vital Signs and I&O:
Vital Signs
Temp Pulse Resp BP Pulse Ox
98.3 F 98 17 121/69 92
06/09/25 07:33 06/09/25 07:33 06/09/25 07:33 06/09/25 07:33 06/09/25 07:33
Vital Signs
Temp Pulse Resp BP Pulse Ox
98.3 F 98 17 121/69 92
06/09/25 07:33 06/09/25 07:33 06/09/25 07:33 06/09/25 07:33 06/09/25 07:33
Intake & Output
06/07/25 06/08/25 06/09/25 06/10/25
06:59 06:59 06:59 06:59
Output Total 950 / 950
Balance -950 / -950
Physical Exam
Physical Exam
GEN: No distress, awake, Ox3 sitting in chair on room air
HEENT: supple, anicteric, mmm
LUNGS: Crackles at right base, mildly decreased at left base, no wheezes
CV: Reg, S1/S2, 1/6 systolic murmur
ABD: soft, BS+, NT/ND
EXT: +1 lower extremity edema, skin changes consistent with chronic venous stasis
NEURO: Gross non-focal
SKIN: No rash
--- NOTE | 2025-06-09 10:52 | W.PN.HOSP.TC ---
Addendum entered and electronically signed by Jermain Carvajal MD 06/09/25 11:16:
repeated TSH WNL
#PreDM - low carb diet
Original Note:
Today's Communication/Plan
-
further cardio mgmt
Assessment / Plan
Assessment / Plan
80yo M with PMHx of Afib not on AC by choice, anxiety, gout, CAD s/p CABG, ischemic CM, CHF came with 2 weeks of worsening breathing and lethargy, found LE edema and hypoxia with pulmonary edema on chest CT, managed for CHF exacerbation. patient
fell on the floor and was unable to raise as per bedside. Was very easily falling asleep for te past 2 , found hypercarbic respiratory failure 2/2 HFrEF exacerbation weeks
A/P:
#b/l pleural effusions R>L
#Atelectasis
#Acute HFrEF exacerbation
#Afib, permanent
#Troponin elevation
#Ascending aortic aneurism
Echo: EF 30-35%, global hypokinesis, RV volume overload, moderate MR, severe TR
Lasix, daily weights, Cr and electrolytes, consider aldactone
Cardio consult
Not on ASA, statin, BB - will need to be started if agreed by patient
Defer AC decision to cardiology. [id number] at least 5 - 7.2% per year stroke risk. Patient declined AC before, he is using herbal supplements for self-medication. Had long discussion on AC and risk/benefit of that. Patient wants to discuss with
card.
DIagnostic R pleural effusion thoracentesis - transudate with neg CX to date. Path pending
follow troponin, EKG with RBBB, Afib, but no clinically significant ST elevations. Biphasic TW in lateral leads seen
Telemetry
#Acute hypoxic hypercapnic respiratory failure with acute metabolic encephalopathy 2/2 CHF
UA neg
Weaned off O2 as of 06/09/[address] chest cannot exclude infection - follow fever and WBC curve. However no left shift. Will hold off Abx until further findings
#Fall
no acute findings on CT head and cervical CT
#Thrombocytopenia
#Chronic leukopenia
unclear reason
follow labs
Outpatient collar pointer
#Gout
#Hypothyroidism
cont Synthroid
cont Allopurinol
#Hx of esophageal stricture with dysphagia
s/p VTE in November 2024: hin liquids and regular texture solids
VT ppx lovenox
DNR/DNI
I have spent at least 51min reviewing chart, test results, communication with consultants, bedside and providing direct patient care
Anticipated Discharge: 24 - 48 hours
Subjective/Interval History
-
Date of Service: June 09, 2025
Objective Data
-
Labs:
Laboratory Results
06/09/25
05:17
WBC 4.3 L
Hgb 13.9
Hct 45.5
Plt Count 114 L
Sodium 138
Potassium 3.5
Chloride 96 L
Carbon Dioxide 42 H
BUN 21 H
Creatinine 1.0
Glucose 110 H
Calcium 8.1 L
Total Bilirubin 1.4 H
AST 29
ALT 17
Alkaline Phosphatase 88
Vital Signs:
Vital Signs
Temp Pulse Resp BP Pulse Ox
98.3 F 98 17 121/69 92
06/09/25 07:33 06/09/25 07:33 06/09/25 07:33 06/09/25 07:33 06/09/25 07:33
I&O
06/08/25 06/09/25 06/10/25
06:59 06:59 06:59
Output Total 950 / 950
Balance -950 / -950
Review of Systems
-
History Source: Patient
All other systems: Reviewed and negative
Physical Exam
-
General: No Apparent Distress
HEENT: Normocephalic
GI: Soft, Nontender and Nondistended
Musculoskeletal: No Clubbing, No Cyanosis, Edema, Right Lower Extrem (trace) and Edema, Left Lower Extrem (trace)
Neuro: Awake, Alert, Oriented and AO x 3
Psych: Calm
[2025-06-09 11:39] VITALS: BP 129/71
[2025-06-09 12:15] LABS: HDL Cholesterol 51 mg/dl; LDL Cholesterol, Calculated 101 mg/dl; Very Low Density Lipoprotein 10 mg/dl (0-30)
[2025-06-09] MEDS: VASOTEC 2.5 MG PO (13:16)
[2025-06-09] MEDS: KCL 40 MEQ PO (13:18)
[2025-06-09 15:42] VITALS: BP 98/70
[2025-06-09] MEDS: LOVENOX 40 MG SC (18:27)
--- NOTE | 2025-06-09 18:40 | PTCARENOTE ---
Patient refused Lipitor during shift stating ' I took statins before and had a bad reaction to them'. Pt didn't elaborate on symptoms, but said ' I was on three before and it just wasn't good'.
[2025-06-09 19:00] VITALS: BP 124/75
[2025-06-09] MEDS: TOPROL XL 12.5 MG PO (20:26)
[2025-06-09 23:00] VITALS: BP 99/65
[2025-06-10 03:00] VITALS: BP 105/71
[2025-06-10] MEDS: SYNTHROID 50 MCG PO (04:55)
[2025-06-10 06:00] VITALS: BMI 24.3
[2025-06-10 07:00] VITALS: BP 111/73
[2025-06-10 07:36] LABS: Blood Urea Nitrogen 19 mg/dl (9-20); Calcium 8.4 mg/dl (8.4-10.2); Chloride 93 mmol/L (98-107); Estimated Creatinine Clearance 47 ml/min; Glucose 108 mg/dl (70-99); Magnesium 2.5 mg/dl (1.6-2.3); Potassium 4.4 mmol/L (3.5-5.1); Sodium 138 mmol/L (135-145); eGFR > 60.00
[2025-06-10] MEDS: TOPROL XL 12.5 MG PO (08:18)
[2025-06-10] MEDS: VASOTEC 2.5 MG PO (08:18)
[2025-06-10] MEDS: ZYLOPRIM 450 MG PO (08:18)
[2025-06-10] MEDS: LASIX 80 MG IV ×2 (08:19→17:05)
[2025-06-10 09:15] LABS: Carbon Dioxide 39 mmol/L (22-30)
--- NOTE | 2025-06-10 10:46 | W.PN.HOSP.TC ---
Today's Communication/Plan
-
PT/OT
Lasix as per card. If switched to PO - d/c home
Assessment / Plan
Assessment / Plan
80yo M with PMHx of Afib not on AC by choice, anxiety, gout, CAD s/p CABG, ischemic CM, CHF came with 2 weeks of worsening breathing and lethargy, found LE edema and hypoxia with pulmonary edema on chest CT, managed for CHF exacerbation. patient
fell on the floor and was unable to raise as per bedside. Was very easily falling asleep for te past 2 , found hypercarbic respiratory failure 2/2 HFrEF exacerbation weeks
A/P:
#b/l pleural effusions R>L
#Atelectasis
#Acute HFrEF exacerbation
#Afib, permanent
#Troponin elevation
#Ascending aortic aneurism
Echo: EF 30-35%, global hypokinesis, RV volume overload, moderate MR, severe TR
Lasix, daily weights, Cr and electrolytes, consider aldactone
Cardio consult
Not on ASA, statin, BB - will need to be started if agreed by patient
Defer AC decision to cardiology. [id number] at least 5 - 7.2% per year stroke risk. Patient declined AC before, he is using herbal supplements for self-medication. Had long discussion on AC and risk/benefit of that. Patient wants to discuss with
card.
DIagnostic R pleural effusion thoracentesis - transudate with neg CX to date. Path pending
follow troponin, EKG with RBBB, Afib, but no clinically significant ST elevations. Biphasic TW in lateral leads seen
Telemetry
#Acute hypoxic hypercapnic respiratory failure with acute metabolic encephalopathy 2/2 CHF
UA neg
Weaned off O2 as of 06/09/[address] chest cannot exclude infection - follow fever and WBC curve. However no left shift. Will hold off Abx until further findings
#Fall
no acute findings on CT head and cervical CT
#Thrombocytopenia
#Chronic leukopenia
unclear reason
follow labs
Outpatient business process associate
#Gout
#Hypothyroidism
cont Synthroid
cont Allopurinol
#Hx of esophageal stricture with dysphagia
s/p VTE in November 2024: hin liquids and regular texture solids
VT ppx lovenox
DNR/DNI
I have spent at least 51min reviewing chart, test results, communication with consultants, bedside and providing direct patient care
Anticipated Discharge: Within 24 hours
Subjective/Interval History
-
Date of Service: June 10, 2025
Objective Data
-
Labs:
Laboratory Results
06/10/25
06:04
Sodium 138
Potassium 4.4 D
Chloride 93 L
Carbon Dioxide 39 H
BUN 19
Creatinine 0.9
Glucose 108 H
Calcium 8.4
Vital Signs:
Vital Signs
Temp Pulse Resp BP Pulse Ox
97.4 F 91 18 111/73 96
06/10/25 07:00 06/10/25 07:00 06/10/25 07:00 06/10/25 07:00 06/10/25 07:00
I&O
06/09/25 06/10/25 06/11/25
06:59 06:59 06:59
Output Total 950 / 950
Balance -950 / -950
Review of Systems
-
History Source: Patient
All other systems: Reviewed and negative
Physical Exam
-
General: No Apparent Distress
HEENT: Normocephalic
Respiratory: Crackles (R)
GI: Soft, Nontender and Nondistended
Musculoskeletal: No Clubbing, No Cyanosis, Edema, Right Lower Extrem and Edema, Left Lower Extrem
Psych: Calm
[2025-06-10 11:00] VITALS: BP 120/95
--- NOTE | 2025-06-10 11:02 | W.DCSUMMARY ---
Discharge Summary
Discharge Data
Date of Admission: 06/08/25
Date of Discharge: 06/11/25
-
Pending Results: No
Hospital Course
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
managed for CHF exacerbation. patient fell on the floor and was unable to raise as per bedside. Was very easily falling asleep for te past 2 , found hypercarbic respiratory failure 2/2 HFrEF exacerbation due to medication non-compliance -
decreased dose of Torsemide at home. Improved on diuresis. Declined anticoagulation as per cardiology notes. Medically stable for d/c home
I have spent at least 51min reviewing chart, test results, communication with consultants, bedside and providing direct patient care
Patient was managed for:
#b/l pleural effusions R>L
#Atelectasis
#Acute HFrEF exacerbation
#Afib, permanent
#Troponin elevation
#Ascending aortic aneurism
#Acute hypoxic hypercapnic respiratory failure with acute metabolic encephalopathy 2/2 CHF
#Fall
#Thrombocytopenia
#Chronic leukopenia
#Gout
#Hypothyroidism
#Hx of laryngeal paresis
#Hx of esophageal stricture with dysphagia
Discharge Plan
-
Patient Disposition: Home (Routine Discharge)
Discharge Diagnosis/Procedures: CHF
Diet: Low Sodium and Diabetic, Carb Controlled
Additional Diets: Fluid restriction <60 Oz per day
Activity: As tolerated
Blood Work: BMP in 1 week with family doctor
Specialty Instructions: Weigh Daily- Call MD for wt gain/loss 3 lbs overnight/5 lbs in 1 week
Activity Restrictions/Additional Instructions:
Weight yourself every morning, if >3lbs overnight - take extra Torsemide dose 1 time, if next morning still up - talk to the doctor LOYDA
Take Torsemide as prescrbed, dont decrease the dose
Instructions: *PCP/Other Dramatic Critic Heart Failure Instructions
Referrals:
Sean Martino DO [Family Provider, Family Practice]
Marcellus Stephens MD [Active, Cardiology] - in less than 1 week
Guy Vera MD [Active, Hematology / Oncology] - in three to four weeks
Referral Note: leukopenia, thrombocytopenia
Prescriptions:
New
atorvastatin 10 mg Tablet
10 mg PO QPM Qty: 30 0RF
enalapril maleate 2.5 mg Tablet
2.5 mg PO DAILY Qty: 30 0RF
metoprolol succinate 25 mg Tablet Extended Release 24 Hr
12.5 mg PO DAILY Qty: 15 0RF
Continued
alprazolam 0.25 mg tablet
0.25 mg PO DAILYPRN PRN (Reason: anxiety)
levothyroxine 50 mcg tablet
50 mcg PO DAILY
allopurinol 300 mg tablet
450 mg PO DAILY
docusate sodium [Colace] 100 mg Capsule
100 mg PO BIDPRN PRN (Reason: constipation)
vitamin B complex Tablet
1 tab PO DAILY
cholecalciferol (vitamin D3) [Vitamin D3] 25 mcg (1,000 unit) Capsule
25 mcg PO DAILY
torsemide 20 mg tablet
20 mg PO BID Qty: 60 0RF
Discontinued
enalapril maleate 10 mg Tablet
10 mg PO DAILY
ascorbic acid (vitamin C) [Vitamin C] 500 mg Tablet
500 mg PO DAILY
Discharge Orders:
Discharge Patient (As Directed); Ordered 06/11/25
Ordered By: Jermain Carvajal
Discharge Date and Time
Print Language: CHADIAN
--- NOTE | 2025-06-10 12:14 | PTCARENOTE ---
Patient refusing bed and chair alarm stating ' I did not fall, I don't know why that is in my chart'. Patient worked with physical therapy this morning who determined that patient is independent with walking. Dr Carvajal made aware of patient's
refusal for bed and chair alarm as well as outcomes of PT session. Dr Carvajal communicated that patient is OK to be off of bed and chair alarm.
[2025-06-10 15:00] VITALS: BP 117/73
[2025-06-10] MEDS: LOVENOX 40 MG SC (17:04)
[2025-06-10 19:20] VITALS: BP 105/66
[2025-06-10 23:10] VITALS: BP 112/74
[2025-06-11 03:00] VITALS: BP 103/67
[2025-06-11] MEDS: SYNTHROID 50 MCG PO (05:45)
[2025-06-11 06:00] VITALS: BMI 24.3
[2025-06-11 07:00] VITALS: BP 112/71
[2025-06-11] MEDS: DEMADEX 20 MG PO (07:07)
[2025-06-11] MEDS: TOPROL XL 12.5 MG PO (07:07)
[2025-06-11] MEDS: ZYLOPRIM 450 MG PO (07:07)
[2025-06-11] MEDS: VASOTEC 2.5 MG PO (07:07)
[2025-06-11 07:43] LABS: Blood Urea Nitrogen 21 mg/dl (9-20); Calcium 8.5 mg/dl (8.4-10.2); Carbon Dioxide 37 mmol/L (22-30); Chloride 94 mmol/L (98-107); Estimated Creatinine Clearance 47 ml/min; Glucose 105 mg/dl (70-99); Potassium 3.6 mmol/L (3.5-5.1); Sodium 135 mmol/L (135-145); eGFR > 60.00
--- NOTE | 2025-06-11 10:23 | W.PN.HOSP.TC ---
Today's Communication/Plan
-
dc
Assessment / Plan
Assessment / Plan
80yo M with PMHx of Afib not on AC by choice, anxiety, gout, CAD s/p CABG, ischemic CM, CHF came with 2 weeks of worsening breathing and lethargy, found LE edema and hypoxia with pulmonary edema on chest CT, managed for CHF exacerbation. patient
fell on the floor and was unable to raise as per bedside. Was very easily falling asleep for te past 2 , found hypercarbic respiratory failure 2/2 HFrEF exacerbation. As per patient - he decreased amount of Torsemide recently - counseled on
compliance.
A/P:
#b/l pleural effusions R>L
#Atelectasis
#Acute HFrEF exacerbation 2/2 medication non-compliance
#Afib, permanent
#Troponin elevation
#Ascending aortic aneurism
Echo: EF 30-35%, global hypokinesis, RV volume overload, moderate MR, severe TR
Lasix, daily weights, Cr and electrolytes, consider aldactone
Cardio consult
Not on ASA, statin, BB - will need to be started if agreed by patient
Defer AC decision to cardiology. [id number] at least 5 - 7.2% per year stroke risk. Patient declined AC before, he is using herbal supplements for self-medication. Had long discussion on AC and risk/benefit of that. Patient wants to discuss with
card.
DIagnostic R pleural effusion thoracentesis - transudate with neg CX to date. Path pending
follow troponin, EKG with RBBB, Afib, but no clinically significant ST elevations. Biphasic TW in lateral leads seen
Telemetry
#Acute hypoxic hypercapnic respiratory failure with acute metabolic encephalopathy 2/2 CHF
UA neg
Weaned off O2 as of 06/09/[address] chest cannot exclude infection - follow fever and WBC curve. However no left shift. Will hold off Abx until further findings
#Fall
no acute findings on CT head and cervical CT
#Thrombocytopenia
#Chronic leukopenia
unclear reason
follow labs
Outpatient handyperson
#Gout
#Hypothyroidism
cont Synthroid
cont Allopurinol
#Hx of esophageal stricture with dysphagia
s/p VTE in November 2024: hin liquids and regular texture solids
VT ppx lovenox
DNR/DNI
I have spent at least 51min reviewing chart, test results, communication with consultants, daughter bedside and providing direct patient care
Anticipated Discharge: Today
Subjective/Interval History
-
Date of Service: June 11, 2025
Objective Data
-
Labs:
Laboratory Results
06/11/25
07:08
Sodium 135
Potassium 3.6
Chloride 94 L
Carbon Dioxide 37 H
BUN 21 H
Creatinine 0.9
Glucose 105 H
Calcium 8.5
Vital Signs:
Vital Signs
Temp Pulse Resp BP Pulse Ox
98.0 F 82 19 112/71 98
06/11/25 07:00 06/11/25 07:00 06/11/25 07:00 06/11/25 07:00 06/11/25 07:00
I&O
06/10/25 06/11/25 06/12/25
06:59 06:59 06:59
Intake Total 1500 / 1500
Balance 1500 / 1500
Review of Systems
-
History Source: Patient
All other systems: Reviewed and negative
Physical Exam
-
General: No Apparent Distress
Respiratory: Crackles
GI: Soft, Nontender and Nondistended
Musculoskeletal: No Clubbing, No Cyanosis, Edema, Right Lower Extrem and Edema, Left Lower Extrem
Psych: Calm
--- NOTE | 2025-06-11 10:56 | CM ---
Addendum entered by Negra Villa RN 06/11/25 11:23:
Pulse ox checked pt pox room air is 96%.
Original Note:
MD entered order for discharge.
Spoke with dgt [facility] in room .Dgt will drive him home.
PT indicated no needs .
Offered VN she declined need .
Pt was wearing oxygen . Requested MD order home oxygen testing .
IMM reviewed and signed on chart.
PLAN Home with no anticipated needs
[2025-06-11 11:00] VITALS: BP 104/68
== END 2025-06-11 12:26 | disposition home or self-care (01) | DRG 291 ==
LOC: 3 WEST ACU 07:17
PROVIDERS: Radiology Vascular & Interventional Radiology; ADMITTING PHYSICIAN Internal Medicine; ATTENDING PHYSICIAN Internal Medicine; EMERGENCY PHYSICIAN Emergency Medicine; FAMILY PHYSICIAN Family Medicine; OTHER PHYSICIAN Nuclear Medicine Nuclear Cardiology
PROC: 0W993ZZ Drainage of Right Pleural Cavity, Percutaneous Approach (ICD-10-PCS; 2025-06-08)
DX: I11.0 Hypertensive heart disease with heart failure (principal); G93.41 Metabolic encephalopathy; J96.21 Acute and chronic respiratory failure with hypoxia; J96.22 Acute and chronic respiratory failure with hypercapnia; I50.43 Acute on chronic combined systolic (congestive) and diastolic (congestive) heart failure; I48.21 Permanent atrial fibrillation; J98.11 Atelectasis; J90 Pleural effusion, not elsewhere classified; Z87.891 Personal history of nicotine dependence; G47.33 Obstructive sleep apnea (adult) (pediatric); Z66 Do not resuscitate; D69.6 Thrombocytopenia, unspecified; M10.9 Gout, unspecified; E03.9 Hypothyroidism, unspecified; Z91.148 Patient's other noncompliance with medication regimen for other reason; I5A Non-ischemic myocardial injury (non-traumatic); Z11.52 Encounter for screening for COVID-19
CPT/HCPCS: 32555; 70450; 71045; 71275; 72125; 80048; 80053; 80061; 81003; 81015; 82150; 82248; 82805; 83036; 83615; 83735; 83880; 83986; 84100; 84157; 84439; 84443; 84484; 85025; 85045; 85610; 85730; 87015; 87070; 87205; 87502; 87811; 88112; 88305; 89051; 93005; 93306; 96374; 97161; 99285; Q9967

== ENCOUNTER 2025-07-24 22:16 | Emergency (ER) | payer OTHER, SELFPAY ==
[2025-07-24 22:19] VITALS: BP 121/70
[2025-07-25 02:07] VITALS: BMI 25.0
[2025-07-25 02:09] VITALS: BP 127/108
[2025-07-25 02:36] LABS: Hematocrit 46.0 % (39.0-52.0); Hemoglobin 15.3 g/dL (13.0-18.0); Mean Corp Hgb Conc. 33.3 g/dL (33.0-37.0); Mean Corpuscular Volume 90.6 fL (80.0-94.0); Nucleated Red Blood Cells % 0 % (-); Platelet Count 144 10^3/uL (130-400); Red Cell Dist. Width 14.8 % (11.5-14.5)
--- NOTE | 2025-07-25 03:00 | ED.GENMED ---
History of Present Illness
General
Chief Complaint: Abdominal Symptoms
Source: patient and spouse
Time Seen by Provider: 07/25/25 02:31
History of Present Illness
History of Present Illness:
Note:
CHIEF COMPLAINT(S)
Constipation
HISTORY OF PRESENT ILLNESS
The patient is an 80-year-old male presenting with symptoms of constipation enduring for the duration of the day. He reports a history of intermittent constipation correlated with the usage of diuretics, which presumably contributes to his
dehydration. Earlier attempts to relieve the condition included administering a suppository, which eventually led to a bowel movement after considerable discomfort. The patient expresses a desire to go home, indicating an improvement in symptoms
during the visit. Discussion included the potential use of polyethylene glycol (Miralax) for ongoing management. The treatment suggestion was to take Miralax once to twice daily over the next five days to ensure regular bowel movements, adjusting
the dose based on response to prevent diarrhea.
Additional historian
Patient spouse states that he did have a bowel movement with resolution of symptoms in the waiting room. She states that she gave him an enema earlier.
CHRONIC MEDICAL CONDITIONS SIGNIFICANTLY AFFECTING CARE
Chronic Obstructive Pulmonary Disease (COPD)
PHYSICAL EXAM
General: Alert, no acute distress.
Skin: Warm, dry.
Head: Normocephalic, atraumatic.
Neck: Supple, trachea midline.
Eye Ears, nose, mouth and throat: Oral mucosa moist.
Cardiovascular: Normal peripheral perfusion, No edema.
Respiratory: Respirations are non-labored.
Gastrointestinal: Abdomen soft, non-tender, no distension.
Back: Normal range of motion, Normal alignment.
Musculoskeletal: Normal range of motion, normal strength.
Neurological: Alert and oriented to person, place, time, and situation, No focal neurological deficit observed.
Psychiatric: Cooperative, appropriate mood & affect.
PLAN
- Initiate Miralax (polyethylene glycol) once to twice daily for the next five days to manage constipation, with dose adjustments based on bowel movement regularity.
- Monitor for improvement and adjust frequency as needed to prevent diarrhea or further constipation.
- Discharge home with instructions for self-care and follow-up if symptoms worsen or new symptoms develop.
DIFFERENTIAL DIAGNOSIS
The Differential Diagnosis includes, in no particular order and is not limited to:
1. Constipation secondary to diuretic use
2. Functional bowel obstruction
3. Fecal impaction
4. Colonic inertia
5. Dehydration
6. Hypothyroidism
7. Gastrointestinal motility disorder
8. Medication-induced constipation
9. Irritable bowel syndrome (IBS)
10. Neurological disorders affecting bowel function
Disposition:
SUMMARY OF ENCOUNTER
An 80-year-old male presented with complaints of constipation that had persisted throughout the day. The patient had previously used an enema and suppository prior to arrival, which resulted in a bowel movement. He reported improvement in symptoms
and was able to urinate while in the waiting area. The patient expressed a desire to go home and denied any further complaints. A recommendation was made to use polyethylene glycol (Miralax) for the next four to five days to manage constipation.
DISPOSITION
Discharge
ASSESSMENT
The patient likely experienced constipation secondary to dehydration possibly linked with diuretic use.
PLAN
The patient was advised to start Miralax (polyethylene glycol) for the next four to five days to manage ongoing symptoms of constipation.
PATIENT EDUCATION AND COUNSELING
Discussed with the patient and spouse the use of Miralax to regulate bowel movements and the importance of maintaining hydration to prevent constipation.
FOLLOW-UP INSTRUCTIONS
Recommended outpatient follow-up if symptoms persist or worsen.
MEDICATION RECONCILIATION
Prescribed Miralax (polyethylene glycol) to be taken over the next four to five days to manage constipation symptoms.
MEDICAL DECISION MAKING
1. Number and Complexity of Problems Addressed:
- Chronic conditions affecting care: Chronic Obstructive Pulmonary Disease (COPD)
- Differential diagnosis considered: Constipation secondary to diuretic use, functional bowel obstruction, fecal impaction, colonic inertia, dehydration, hypothyroidism, gastrointestinal motility disorder, medication-induced constipation, irritable
bowel syndrome (IBS), neurological disorders affecting bowel function.
DIAGNOSIS
Constipation, unspecified (ICD-10-CM K59.00)
Dehydration (ICD-10-CM E86.0)
Past History
Past History
ED Past Medical History: Arrthythmia (Atrial fibrillation), CAD, CHF, HTN, Hypothyroidism and Other (Gout; thoracic aortic aneurysm)
ED Past Surgical History: Cardiac (CABG, abdominal aortic aneurysm repair, PTCA with stents) and Orthopedic (Left knee surgery 2022)
Social History
Tobacco: Non-smoker
Alcohol: None
Drug: None
Living: with family
Employment: Retired
Family History
Family History: Other (Noncontributory)
Phy Exam
Physical Exam
Physical Exam:
.
Course
Orders/Labs/Results
Orders:
Orders
07/25/25 02:18
CMP [Comprehensive Metabolic Panel] Urgent
Complete Blood Count/With Diff Urgent
07/25/25 02:39
Bladder Scan- Treatment ONCE
Abnormal Lab Results
07/25/25
02:18
RDW 14.8 H %
(11.5-14.5)
Absolute Lymphs (auto) 0.3 L 10^3/uL
(1.2-3.4)
Absolute Monos (auto) 0.7 H 10^3/uL
(0.1-0.6)
Neutrophils % 82.8 H %
(42.2-75.2)
Lymphocytes % 4.8 L %
(20.5-51.1)
Monocytes % 10.5 H %
(1.7-9.3)
Sodium 134 L mmol/L
(135-145)
Chloride 92 L mmol/L
(98-107)
Carbon Dioxide 35 H mmol/L
(22-30)
Glucose 113 H mg/dl
(70-99)
Total Bilirubin 1.6 H mg/dl
(0.2-1.3)
07/25/25 02:18
07/25/25 02:18
Vital Signs
Initial and Last Documented VS:
Initial Vital Signs
Temp Pulse Resp BP Pulse Ox
97.3 F 103 22 121/70 95
07/24/25 22:19 07/24/25 22:19 07/24/25 22:19 07/24/25 22:19 07/24/25 22:19
Last Documented Vital Signs
Temp Pulse Resp BP Pulse Ox
97.3 F 103 20 127/108 96
07/24/25 22:19 07/24/25 22:19 07/25/25 02:56 07/25/25 02:09 07/25/25 03:02
*Pulse Oximetry
SaO2: 96
Nasal Cannula flow liters per minute: 2
Oxygen Mode of Delivery: Room air
Patient hypoxic: no
*Critical Care Note
Total Time (30-74mins, 75-104mins- exclusive of procedures): Not Applicable
ED Attending Note
-
Portions of this chart may have been created with voice recognition software.� Occasional wrong word or��sound alike� substitutions may have occurred due to the inherent limitations of voice recognition software.
Discharge Plan
Departure
Patient Disposition: Home (Routine Discharge)
Date of Disposition: 07/25/25
Time of Disposition: 03:01
Patient with high blood pressure during this ER visit?: Yes
Discharge Problem:
Constipation
Instructions: Constipation, Adult (DC), BLOOD PRESSURE
Prescriptions:
No Action
alprazolam 0.25 mg tablet
0.25 mg PO DAILYPRN PRN (Reason: anxiety)
levothyroxine 50 mcg tablet
50 mcg PO DAILY
allopurinol 300 mg tablet
450 mg PO DAILY
docusate sodium [Colace] 100 mg Capsule
100 mg PO BIDPRN PRN (Reason: constipation)
vitamin B complex Tablet
1 tab PO DAILY
cholecalciferol (vitamin D3) [Vitamin D3] 25 mcg (1,000 unit) Capsule
25 mcg PO DAILY
atorvastatin 10 mg Tablet
10 mg PO QPM Qty: 30 0RF
enalapril maleate 2.5 mg Tablet
2.5 mg PO DAILY Qty: 30 0RF
metoprolol succinate 25 mg Tablet Extended Release 24 Hr
12.5 mg PO DAILY Qty: 15 0RF
torsemide 20 mg tablet
20 mg PO BID Qty: 60 0RF
Referrals:
Sean Martino DO [Family Provider, Family Practice]
Activity Restrictions/Additional Instructions:
Please use MiraLAX once to twice a day for the next 5 days as discussed. REturn immediately for abdominal pain, vomiting, blood in stool or any other concerns.
Please see your doctor in the next 3-5 days for follow-up and reevaluation
Interventions
Interventions:
*General Assessment Last Done: 07/24/25 22:21
*Neglect/Abuse Screening Last Done: 07/24/25 22:21
*ED COVID-19 Vaccine History Last Done: 07/24/25 22:21
*ED Influenza Vaccine History Last Done: 07/24/25 22:21
[facility] Risk Assessment Tool Last Done: 07/25/25 02:07
*Risk Screen - Suicide (C-SSRS) Last Done: 07/24/25 22:21
*Nursing Disposition Last Done: 07/25/25 03:14
KE-Ovgoej-Kaurvneeyg Assessment Last Done: 07/25/25 02:20
Discharge Date and Time
Discharge Date/Time: 07/25/25 03:14
Print Language: FAROESE
[2025-07-25 03:04] LABS: ALT (SGPT) 14 U/L (0-50); AST (SGOT) 27 U/L (17-59); Albumin 3.8 g/dl (3.5-5.0); Alkaline Phosphatase 112 U/L (38-126); Blood Urea Nitrogen 19 mg/dl (9-20); Calcium 9.1 mg/dl (8.4-10.2); Carbon Dioxide 35 mmol/L (22-30); Chloride 92 mmol/L (98-107); Estimated Creatinine Clearance 40 ml/min; Glucose 113 mg/dl (70-99); Potassium 4.5 mmol/L (3.5-5.1); Sodium 134 mmol/L (135-145); Total Protein 6.6 g/dl (6.3-8.2); eGFR > 60.00
== END 2025-07-25 03:14 | disposition home or self-care (01) ==
LOC: EMR 22:16
PROVIDERS: EMERGENCY PHYSICIAN Emergency Medicine; FAMILY PHYSICIAN Family Medicine
DX: K59.00 Constipation, unspecified (principal); I11.0 Hypertensive heart disease with heart failure; I50.9 Heart failure, unspecified; J44.9 Chronic obstructive pulmonary disease, unspecified
CPT/HCPCS: 99283; 80053; 85025